=== PATIENT | female | born 1980 | race Caucasian/White ===

== ENCOUNTER 2017-04-14 13:40 | Emergency (ER) | payer OTHER ==
[2017-04-14 13:54] VITALS: RESP 18
[2017-04-14] MEDS ORDERED: methylPREDNISolone SOD SUCCI 125 MG/2 ML VIAL IM STA (14:06)
[2017-04-14] MEDS ORDERED: IPRATROPIUM-ALBUTEROL 3 ML NEB INHALATION STA (14:06)
--- NOTE | 2017-04-14 14:11 | ED ---
General Adult HPI - General Chief complaint: Upper Respiratory Infection Stated complaint: congestion Time Seen by Provider: 04/14/17 13:58 Source: patient, RN notes reviewed Mode of arrival: ambulatory Limitations: no limitations - History of Present Illness Initial comments: Patient 36-year-old female who presents emergency room today with a chief complaint of cough congestion over the last 2 days with positive sputum production it's been green in color. Patient does admit that she's had some chills body aches. She admits that she's had so nausea. Patient denies any other complaints or symptoms of time. She states she does have a history of asthma. She states she does have an inhaler with her currently. She is currently staying at [facility] for rehabilitation. Please use medication as discussed. She denies any fever, shortness of breath, chest pain, back pain, abdominal pain, vomiting, numbness tingling, dysuria or hematuria, headaches or visual change. - Related Data Home Medications Medication Instructions Recorded Confirmed Acetaminophen [Tylenol Arthritis] 650 mg PO Q4HR 04/14/17 04/14/17 Atenolol [Tenormin] 25 mg PO DAILY 04/14/17 04/14/17 Calcium/Magnesium/Zinc 1 tab PO TID PRN 04/14/17 04/14/17 [Qeczyml-[id number]-Wrhz Tablet] Cariprazine HCl [Vraylar] 3 mg PO DAILY 04/14/17 04/14/17 Chlorpheniramine Maleate 4 mg PO Q4H PRN 04/14/17 04/14/17 [Chlor-Trimeton] Ciprofloxacin HCl [Cipro] 500 mg PO BID 04/14/17 04/14/17 Ciprofloxacin Ophth Soln [Cipro 4 drops RIGHT EAR DAILY 04/14/17 04/14/17 0.3% Ophth Soln] Furosemide [Lasix] 20 mg PO DAILY 04/14/17 04/14/17 Gabapentin 600 mg PO TID 04/14/17 04/14/17 Hyoscyamine Sulfate [Levsin] 0.125 mg SL QID PRN 04/14/17 04/14/17 Ibuprofen [Motrin] 800 mg PO Q8H PRN 04/14/17 04/14/17 Loperamide [Imodium] 4 mg PO TID 04/14/17 04/14/17 Multivitamins, Thera [Multivitamin 1 tab PO DAILY 04/14/17 04/14/17 (formulary)] Ondansetron HCl [Zofran] 8 mg PO Q6HR PRN 04/14/17 04/14/17 Trimethobenzamide HCl [Tigan] 300 mg PO Q6HR PRN 04/14/17 04/14/17 Vortioxetine Hydrobromide 10 mg PO DAILY 04/14/17 04/14/17 [Trintellix] busPIRone HCL 10 mg PO TID 04/14/17 04/14/17 cloNIDine HCL [Catapres] 0.1 - 0.3 mg PO Q4HR PRN 04/14/17 04/14/17 Previous Rx's Medication Instructions Recorded Albuterol Nebulized [Ventolin 2.5 mg INHALATION Q4H PRN 10 Days 04/14/17 Nebulized] Azithromycin [Zithromax Z-pack] 0 mg PO DIRECTED #6 tab 04/14/17 predniSONE 60 mg PO DAILY 5 Days 04/14/17 Allergies Allergy/AdvReac Type Severity Reaction Status Date / Time Penicillins Allergy Dyspnea Verified 04/14/17 14:00 Review of Systems ROS Statement: Those systems with pertinent positive or pertinent negative responses have been documented in the HPI. ROS Other: All systems not noted in ROS Statement are negative. Past Medical History Past Medical History: Asthma, Hypertension Additional Past Medical History / Comment(s): brain mass History of Any Multi-Drug Resistant Organisms: None Reported Past Surgical History: No Surgical Hx Reported Past Psychological History: Bipolar Smoking Status: Current every day smoker Past Alcohol Use History: None Reported Past Drug Use History: Cocaine, Heroin General Exam - General Exam Comments Initial Comments: General: The patient is awake and alert, in no distress, and does not appear acutely ill. Eye: Pupils are equal, round and reactive to light, extra-ocular movements are intact. No nystagmus. There is normal conjunctiva bilaterally. No signs of icterus. Ears, nose, mouth and throat: There are moist mucous membranes and no oral lesions. Neck: The neck is supple, there is no tenderness or JVD. Cardiovascular: There is a regular rate and rhythm. No murmur, rub or gallop is appreciated. Respiratory: Bilateral expiratory wheeze. respirations are non-labored, breath sounds are equal. No stridor, rales, or rhonchi. Musculoskeletal: Normal ROM, no tenderness. Strength 5/5. Sensation intact. Pulses equal bilaterally 2+. Neurological: A&O x 3. CN II-XII intact, There are no obvious motor or sensory deficits. Coordination appears grossly intact. Speech is normal. Skin: Skin is warm and dry and no rashes or lesions are noted. Psychiatric: Cooperative, appropriate mood & affect, normal judgment. Limitations: no limitations Course Vital Signs 04/14/17 04/14/17 04/14/17 13:48 14:33 14:42 Temperature 98.2 F Pulse Rate 72 72 76 Respiratory 18 Rate Blood Pressure 133/85 O2 Sat by Pulse 100 Oximetry Medical Decision Making - Medical Decision Making Chest x-ray reviewed negative for any acute abnormalities. Patient given breathing treatment here in the emergency room lung sounds improved after treatment. She states feeling much better. She was given dose of steroids here as well. Patient will be discharged home with steroids, antibiotic use symptoms do not improve over the next 2 days along with albuterol treatments for her nebulizer. Patient advised return if any symptoms increase worsen. Disposition Clinical Impression: Acute bronchitis Disposition: HOME SELF-CARE Condition: Good Instructions: Acute Bronchitis (ED) Additional Instructions: Please use albuterol treatments every 4-6 hours as needed. Please use steroids once daily as prescribed. Please use antibiotic if symptoms are unimproved over the next 2 days. Please follow-up over the next 2 days with family doctor symptoms are not improved. Please return here to the emergency room symptoms increase or worsen or for any concerns. Prescriptions: Albuterol Nebulized [Ventolin Nebulized] 2.5 mg INHALATION Q4H PRN 10 Days PRN Reason: Cough Azithromycin [Zithromax Z-pack] 0 mg PO DIRECTED #6 tab predniSONE 60 mg PO DAILY 5 Days Referrals: Nonstaff,Physician [REFERRING] - 1-2 days Time of Disposition: 14:50
--- NOTE | 2017-04-14 14:38 | XR ---
EXAMINATION TYPE: XR chest 2V DATE OF EXAM: 04/14/2017 COMPARISON: NONE HISTORY: Productive cough TECHNIQUE: Frontal and lateral views of the chest are obtained. FINDINGS: There is no focal air space opacity, pleural effusion, or pneumothorax seen. The cardiac silhouette size is within normal limits. The osseous structures are intact. Mild degenerative reeves es of the thoracic spine are seen. IMPRESSION: No acute cardiopulmonary process.
[2017-04-14 14:43] VITALS: PULSE 76
[2017-04-14 15:06] VITALS: BP 129/87; TEMP 97.8
== END 2017-04-14 15:06 | disposition home or self-care (01) ==
LOC: EC 13:40
DX: J20.9 Acute bronchitis, unspecified (principal); R11.0 Nausea; J45.909 Unspecified asthma, uncomplicated; I10 Essential (primary) hypertension; F31.9 Bipolar disorder, unspecified; F17.200 Nicotine dependence, unspecified, uncomplicated; Z79.899 Other long term (current) drug therapy; Z88.0 Allergy status to penicillin
CPT/HCPCS: 94640; 71020; 99283; 96372; J2930